=== PATIENT | female | born 1990 | race Caucasian/White ===

== ENCOUNTER 2019-07-15 09:09 | Emergency (ER) | payer SELFPAY ==
--- NOTE | 2019-07-15 09:39 | Emergency Department Record ---
History of Present Illness - General Chief Complaint: Animal Bite Stated Complaint: DOG BITE Time Seen by Provider: 07/15/19 09:25 Source: Patient Mode of Arrival: Ambulatory Limitations: No limitations - History of Present Illness Initial Comments: The patient is here due to a dog bite to her L thumb a half hour ago. 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 The patient denies any numbness or tingling. Her Td is UTD and the dogs rabies shots are also UTD. Complaint: Animal bite Onset/Timin -: Minutes(s) Animal: Dog Mechanism: Bite Context: Other Treatments Prior to Arrival: Irrigation - Related Data Patient Tetanus UTD (within 5 yrs): Yes Home Medications Medication Instructions Recorded Confirmed Last Taken Multivitamin [One Daily 1 each PO DAILY 07/15/19 07/15/19 07/14/19 Multivitamin] Previous Rx's Medication Instructions Recorded Amoxicillin/Potassium Clav 1 tab PO BID #14 tab 07/15/19 [Augmentin 875-125 Tablet] Allergies Allergy/AdvReac Type Severity Reaction Status Date / Time sulfamethoxazole Allergy HIVES Verified 07/15/19 09:23 [From Bactrim] trimethoprim [From Bactrim] Allergy HIVES Verified 07/15/19 09:23 Travel/Exposure Screening - Travel/Exposure Within Last 30 Days Have you traveled within the last 30 days?: Yes Location Detail:: [place] - Travel/Exposure Within Last Year Have you traveled outside the [place] in the last year?: No - Additonal Travel/Exposure Details Have you been exposed to anyone with a communicable illness?: No - Travel Symptoms Symptom Screening: None Review of Systems Constitutional: Denies: Chills, Fever Past Medical History - SOCIAL HISTORY Smoking Status: Never smoker Alcohol Use: Occasional Drug Use: None - RESPIRATORY Hx Respiratory Disorders: No - CARDIOVASCULAR Hx Cardio Disorders: No - NEURO Hx Neuro Disorders: No - GI Hx GI Disorders: No - Hx Genitourinary Disorders: No - ENDOCRINE Hx Endocrine Disorders: No - MUSCULOSKELETAL Hx Musculoskeletal Disorders: No - PSYCH Hx Psych Problems: No - HEMATOLOGY/ONCOLOGY Hx Hematology/Oncology Disorders: No Family Medical History Any Significant Family History?: No Physical Exam - General General Appearance: Alert, Cooperative, No acute distress - Head Head exam: Atraumatic - Eye Eye exam: Normal appearance - Extremities Extremities exam: Full ROM, Normal capillary refill, Tenderness, Other (The L thumb is NVI with normal sensation and no bony tenderness.). negative: Normal inspection (There is a 1mm PW to the dorsal thumb half way between the MCP and DIP joint. There is no active bleeding. There also is a 4 mm superficial lac to the distal thumb pad. There is no active bleeding.) Image of Finger Tip: 1 - Superficial skin lac. - Neurological Neurological exam: Alert. negative: Motor sensory deficit Course Vital Signs 07/15/19 09:11 Temperature 97.8 F Pulse Rate 77 Respiratory 16 Rate Blood Pressure 126/78 Pulse Ox 95 - Reevaluation(s) Reevaluation #1: I did discuss the issues with the patient. Since the small lac and PW do not need suturing we did clean the thumb with [place] and dressed with tube gauze. She is to keep the dressing in place for 2 days and take Augmentin and will return for any worsening symptoms. 07/15/19 09:43 Disposition Disposition: Discharge Clinical Impression: Dog bite Qualifiers: Encounter type: initial encounter Qualified Code(s): W54.0XXA - Bitten by dog, initial encounter Disposition: Home, Self-Care Condition: (2) Stable Instructions: Animal Bite (ED) Additional Instructions: Please keep dry for 2 days then no soaking or swimming. Take the Augmentin as directed and return to the ER for any signs of infection. Prescriptions: Amoxicillin/Potassium Clav [Augmentin 875-125 Tablet] 1 tab PO BID #14 tab Forms: Patient Portal Access Time of Disposition: 09:47 Quality - Quality Measures Quality Measures: N/A - Blood Pressure Screening View Details: Yes Does Patient Have Any of the Following: No Blood Pressure Classification: Pre-Hypertensive BP Reading Systolic Measurement: 126 Diastolic Measurement: 78 Screening for High Blood Pressure: < Pre-Hypertensive BP, F/U Documented > [G8950] Pre-Hypertensive Follow-up Interventions: Referral to alternative/primary care provider.
== END 2019-07-15 10:08 | disposition home or self-care (01) ==
LOC: ER 09:09
DX: S60.372A Other superficial bite of left thumb, initial encounter (principal); W54.0XXA Bitten by dog, initial encounter; Y93.K9 Activity, other involving animal care; Y92.89 Other specified places as the place of occurrence of the external cause; Y99.0 Civilian activity done for income or pay
CPT/HCPCS: 99283